=== PATIENT | female | born 1955 | race African-American/Black ===

== ENCOUNTER 2017-06-14 06:07 | Emergency (ER) | payer BC ==
[~2017-06-14] VITALS: Ht 165.1 cm; Wt 98.0 kg
[2017-06-14] MEDS ORDERED: SODIUM CHLORIDE 0.9% 1,000 ML IV ONE (06:49)
[2017-06-14] MEDS ORDERED: ONDANSETRON HCL 4MG/2ML VIAL IV STA (06:49)
[2017-06-14] MEDS ORDERED: KETOROLAC 30MG/ML VIAL IV STA (06:49)
[2017-06-14 07:04] LABS: BASOPHILS % 0.7 % (0.0-2.0); LYMPHOCYTES % 21.9 % (20.0-50.0); MEAN CORPUSCULAR HEMOGLOBIN 29.6 pg (28.0-32.0); MEAN CORPUSCULAR VOLUME 88.4 fL (81.0-99.0); MONOCYTES % 6.7 % (2.0-8.0); NEUTROPHILS % 69.7 % (40.0-76.0); RED BLOOD CELL COUNT 4.07 mill/uL (4.2-5.4)
[2017-06-14 07:14] LABS: PROTHROMBIN TIME 10.7 sec
[2017-06-14 07:16] LABS: CLARITY URINE CLOUDY (CLEAR); COLOR URINE DARK YELLOW (YELLOW); GLUCOSE URINE NEGATIVE (NEGATIVE); KETONES URINE NEGATIVE (NEGATIVE); LEUKOCYTE ESTERASE URINE NEGATIVE (NEGATIVE); NITRITE URINE NEGATIVE (NEGATIVE); OCCULT BLOOD URINE NEGATIVE (NEGATIVE); PH URINE 5.5 (4.5-8.0); PROTEIN URINE TRACE (NEGATIVE); SPECIFIC GRAVITY URINE 1.032 (1.005-1.030)
[2017-06-14 07:18] LABS: CARBON DIOXIDE 30 mEq/L (21-32); CHLORIDE 108 mEq/L (98-107)
[2017-06-14 09:03] LABS: MEAN PLATELET VOLUME 8.4 fl (7.4-10.4); PLATELET 191 x1000/uL (130-400); PLATELET ESTIMATE NORMAL
[2017-06-14 10:56] VITALS: BP 133/79
[2017-06-14] MEDS ORDERED: IOHEXOL-300 100 ML BOTTLE ONE (14:25)
[2017-06-14] MEDS ORDERED: SODIUM CHLORIDE 0.9% 10ML VIAL ONE (14:25)
== END 2017-06-14 10:59 | disposition home or self-care (01) ==
LOC: ER 06:07
DX: R10.32 Left lower quadrant pain (principal); F32.9 Major depressive disorder, single episode, unspecified; I95.9 Hypotension, unspecified; Z90.710 Acquired absence of both cervix and uterus
CPT/HCPCS: 36415; 74177; 80053; 81001; 83690; 85025; 85610; 96361; 96374; 96375; 99285; A4216; J1885; J2405; J7042; Q9967; Z7610; J7030; A4315

== ENCOUNTER 2018-08-20 11:00 | Inpatient (IN) | payer BC ==
[~2018-08-20] VITALS: Ht 167.6 cm; Wt 111.6 kg
[2018-08-20] MEDS ORDERED: ONDANSETRON HCL 4MG/2ML INJ IV STA (11:32)
[2018-08-20] MEDS ORDERED: NITROGLYCERIN 0.4MG TABLET SL SL PRN (11:45)
[2018-08-20] MEDS ORDERED: ASPIRIN 81MG TABLET PO ONE (11:45)
[2018-08-20] MEDS ORDERED: FAMOTIDINE 20MG/2ML VIAL IV ONE (12:00)
[2018-08-20 12:07] LABS: CHLORIDE 106 mEq/L (98-107)
[2018-08-20 12:15] LABS: D-DIMER 0.66 mg/L FEU (<0.50); INR 1.1; PARTIAL THROMBOPLASTIN TIME 26.1 sec (23.4-31.0); PROTHROMBIN TIME 10.7 sec (9.1-11.1)
[2018-08-20 12:23] LABS: BASOPHILS % 0.5 % (0.0-2.0); EOSINOPHILS % 0.2 % (0.0-5.0); HEMATOCRIT. 39.5 % (36.0-48.0); HEMOGLOBIN. 13.4 g/dL (12.0-16.0); LYMPHOCYTES % 12.6 % (20.0-50.0); MEAN CORPUSCULAR VOLUME 88.3 fL (81.0-99.0); MEAN PLATELET VOLUME 8.9 fl (7.4-10.4); NEUTROPHILS % 80.7 % (40.0-76.0); PLATELET 195 x1000/uL (130-400); RED BLOOD CELL COUNT 4.47 mill/uL (4.2-5.4); RED CELL DISTRIBUTION WIDTH 13.7 % (11.6-14.6)
[2018-08-20] MEDS ORDERED: ENOXAPARIN 120MG/0.8ML SYR SUBCUT ONE (12:45)
[2018-08-20] MEDS ORDERED: IOHEXOL-300 100 ML BOTTLE ONE (14:34)
[2018-08-20] MEDS ORDERED: CLONIDINE 0.1MG TABLET PO PRN ×2 (14:45→19:00)
[2018-08-20] MEDS ORDERED: MAGNESIUM/ALUMINUM HYDROXIDE/SIMETHICONE 30ML UDC PO PRN (14:45)
[2018-08-20] MEDS ORDERED: MORPHINE SULFATE 4 MG/ML CPJ (NOT FOR IM USE) IV PRN (14:45)
[2018-08-20] MEDS ORDERED: DOCUSATE SODIUM 100MG CAPSULE PO PRN (14:45)
[2018-08-20] MEDS ORDERED: IPRATROPIUM/ALBUTEROL 0.5-3(2.5)MG/3ML NEB INH PRN (14:45)
[2018-08-20] MEDS ORDERED: ONDANSETRON HCL 4MG/2ML INJ IV PRN (14:45)
[2018-08-20] MEDS ORDERED: LORAZEPAM 2MG/ML CPJ IV PRN (14:45)
[2018-08-20] MEDS ORDERED: HYDROCODONE/ACETAMINOPHEN 5/325MG TABLET PO PRN (14:45)
[2018-08-20] MEDS ORDERED: ACETAMINOPHEN 325MG TABLET PO PRN (14:45)
[2018-08-20] MEDS ORDERED: DIPHENHYDRAMINE 50MG/ML VIAL IV PRN (14:45)
[2018-08-20] MEDS ORDERED: GUAIFENESIN 200MG/10ML SUGAR FREE UDC PO PRN (14:45)
[2018-08-20] MEDS ORDERED: NA PHOS,M-B/NA PHOS,DI-BA ENEMA 118ML PR PRN (14:45)
[2018-08-20 16:52] LABS: CHLORIDE 104 mEq/L (98-107)
[2018-08-20 18:30] VITALS: BP 117/58
[2018-08-20] MEDS ORDERED: ALPR0.5T MT (18:57)
[2018-08-20] MEDS ORDERED: ASPIRIN 325MG EC TABLET PO NR (19:00)
[2018-08-20] MEDS ORDERED: ENOXAPARIN 100MG/ML SYR SUBCUT ONE (19:00)
[2018-08-20] MEDS ORDERED: LOSARTAN POTASSIUM 25 MG TABLET PO NR (19:00)
[2018-08-20] MEDS ORDERED: ASPIRIN 81MG TABLET PO NR (19:30)
[2018-08-20 20:00] VITALS: BP 138/74
[2018-08-20 20:01] VITALS: BP 138/74
[2018-08-20] MEDS: SODIUM CHLORIDE 0.45% 1,000 ML IV SCH (21:09)
[2018-08-20] MEDS: ENOXAPARIN 30MG/0.3ML SYR SUBCUT SCH (21:10)
[2018-08-20 22:00] VITALS: BP 111/68
[2018-08-20] MEDS: NITROGLYCERIN OINT 1GM/INCH UDPKT TD SCH (22:34)
[2018-08-21] VITALS (12 sets, daily range): BP systolic 91–141; BP diastolic 50–99
[2018-08-21] MEDS: NITROGLYCERIN OINT 1GM/INCH UDPKT TD SCH (06:00)
[2018-08-21 06:35] LABS: BASOPHILS % 0.4 % (0.0-2.0); EOSINOPHILS % 0.1 % (0.0-5.0); HEMATOCRIT. 35.7 % (36.0-48.0); MEAN CORPUSCULAR HEMOGLOBIN 30.1 pg (28.0-32.0); MEAN PLATELET VOLUME 9.4 fl (7.4-10.4); MONOCYTES % 8.4 % (2.0-8.0); NEUTROPHILS % 78.1 % (40.0-76.0); PLATELET 165 x1000/uL (130-400); RED CELL DISTRIBUTION WIDTH 13.6 % (11.6-14.6)
[2018-08-21 06:43] LABS: CHLORIDE 106 mEq/L (98-107)
[2018-08-21 06:57] LABS: CREATINE KINASE 424 IU/L (26-192); CREATINE KINASE MB FRACTION 16.6 ng/mL (0.5-3.6); LDL CHOLESTEROL 207 mg/dL (5-100)
[2018-08-21 06:58] LABS: HDL CHOLESTEROL 44 mg/dL (40-59); T4 FREE 0.98 ng/dL (0.76-1.46)
[2018-08-21] MEDS: SODIUM CHLORIDE 0.45% 1,000 ML IV SCH ×2 (07:44→21:30)
[2018-08-21] MEDS: ENOXAPARIN 30MG/0.3ML SYR SUBCUT SCH (09:00)
[2018-08-21] MEDS ORDERED: ASPIRIN 81MG EC TABLET PO SCH (09:00)
[2018-08-21] MEDS: ASPIRIN 325MG EC TABLET PO SCH (11:38)
[2018-08-21] MEDS ORDERED: NICARDIPINE 100MCG/ML 10ML VIAL (CATH LAB) IV ONE (13:20)
[2018-08-21] MEDS ORDERED: NITROGLYCERIN 50MCG/ML 10ML VIAL (CATH LAB) IV ONE (13:20)
[2018-08-21] MEDS ORDERED: LIDOCAINE HCL 1% 10 MG/ML 10ML VIAL ONE (13:55)
[2018-08-21] MEDS ORDERED: MIDAZOLAM HCL 2 MG/2 ML VIAL ONE (13:55)
[2018-08-21] MEDS ORDERED: IOHEXOL-300 100 ML BOTTLE ONE ×3 (13:56→14:35)
[2018-08-21] MEDS ORDERED: FENTANYL CITRATE/PF 50MCG/ML 2ML VIAL ONE (13:56)
[2018-08-21] MEDS ORDERED: ACETAMINOPHEN 325MG TABLET PO PRN (14:45)
[2018-08-21] MEDS ORDERED: ATROPINE SULFATE 1MG/10ML SYR IV PRN (14:45)
[2018-08-21 14:54] LABS: *AMPHETAMINES SCREEN URINE NEGATIVE (NEGATIVE); *BARBITURATES SCREEN URINE NEGATIVE (NEGATIVE); *BENZODIAZEPINES SCREEN URINE NEGATIVE (NEGATIVE); *COCAINE SCREEN URINE NEGATIVE (NEGATIVE); METHADONE URINE SCREEN NEGATIVE (NEGATIVE); OPIATES URINE SCREEN NEGATIVE (NEGATIVE)
[2018-08-21 14:55] LABS: CANNABINOID URINE SCREEN NEGATIVE (NEGATIVE); PHENCYCLIDINE URINE SCREEN NEGATIVE (NEGATIVE)
[2018-08-21] MEDS ORDERED: CLOPIDOGREL 75MG TABLET ONE (15:07)
[2018-08-21] MEDS ORDERED: HEPARIN SODIUM 1,000 UNIT/1ML VIAL IV ONE (15:15)
[2018-08-21] MEDS ORDERED: ATORVASTATIN CALCIUM 20MG TABLET PO SCH (21:00)
[2018-08-21] MEDS ORDERED: ATORVASTATIN CALCIUM 40MG TABLET PO SCH (21:00)
[2018-08-22] VITALS (9 sets, daily range): BP systolic 100–131; BP diastolic 59–96
[2018-08-22 06:44] LABS: BASOPHILS % 0.3 % (0.0-2.0); EOSINOPHILS % 0.3 % (0.0-5.0); HEMATOCRIT. 35.2 % (36.0-48.0); HEMOGLOBIN. 12.1 g/dL (12.0-16.0); LYMPHOCYTES % 16.2 % (20.0-50.0); MEAN CORPUSCULAR HEMOGLOBIN 30.4 pg (28.0-32.0); MEAN CORPUSCULAR VOLUME 88.1 fL (81.0-99.0); MEAN PLATELET VOLUME 9.4 fl (7.4-10.4); MONOCYTES % 7.5 % (2.0-8.0); NEUTROPHILS % 75.7 % (40.0-76.0); PLATELET 155 x1000/uL (130-400); RED CELL DISTRIBUTION WIDTH 13.7 % (11.6-14.6)
[2018-08-22 07:13] LABS: CHLORIDE 104 mEq/L (98-107)
[2018-08-22 07:23] LABS: CREATINE KINASE 221 IU/L (26-192)
[2018-08-22] MEDS: ASPIRIN 325MG EC TABLET PO SCH (07:55)
[2018-08-22] MEDS ORDERED: CLOPIDOGREL 75MG TABLET PO SCH (09:00)
[2018-08-22] MEDS: SODIUM CHLORIDE 0.45% 1,000 ML IV SCH (10:00)
== END 2018-08-22 15:18 | disposition home or self-care (01) | DRG 247 ==
LOC: ER 11:00 → 8WST 14:33 → ENRESERV 15:41 → 3WST 18:15
PROVIDERS: ADMIT Internal Medicine; ATTEND Internal Medicine
PROC: 4A023N7 Measurement of Cardiac Sampling and Pressure, Left Heart, Percutaneous Approach (ICD-10-PCS; principal; 2018-08-21)
PROC: 027034Z Dilation of Coronary Artery, One Artery with Drug-eluting Intraluminal Device, Percutaneous Approach (ICD-10-PCS; 2018-08-21)
PROC: B2111ZZ Fluoroscopy of Multiple Coronary Arteries using Low Osmolar Contrast (ICD-10-PCS; 2018-08-21)
DX: I21.4 Non-ST elevation (NSTEMI) myocardial infarction (principal); K57.90 Diverticulosis of intestine, part unspecified, without perforation or abscess without bleeding; E66.9 Obesity, unspecified; E78.00 Pure hypercholesterolemia, unspecified; E86.0 Dehydration; F32.9 Major depressive disorder, single episode, unspecified; F41.9 Anxiety disorder, unspecified; I10 Essential (primary) hypertension; Z87.891 Personal history of nicotine dependence; Z90.710 Acquired absence of both cervix and uterus; Z68.39 Body mass index [BMI] 39.0-39.9, adult
CPT/HCPCS: 36415; 71045; 71275; 80048; 80053; 80061; 80305; 82550; 82553; 83735; 83880; 84439; 84443; 84484; 85025; 85347; 85379; 85610; 85730; 86850; 86900; 92928; 93005; 93306; 93454; 93970; 96374; 96375; 99285; C1760; C1769; C1874; C1887; C1893; J1644; J1650; J2250; J2405; J3010; J3490; Q9967

== ENCOUNTER 2018-12-30 11:21 | Emergency (ER) | payer BC ==
[~2018-12-30] VITALS: Ht 165.1 cm; Wt 102.0 kg
[~2018-12-30 11:21] MED LIST: ALPR0.5T MT
[2018-12-30 11:51] VITALS: BP 102/56
== END 2018-12-30 15:30 | disposition left against medical advice (07) ==
LOC: ER 11:21
DX: R21 Rash and other nonspecific skin eruption (principal); E78.00 Pure hypercholesterolemia, unspecified; F41.9 Anxiety disorder, unspecified; Z53.21 Procedure and treatment not carried out due to patient leaving prior to being seen by health care provider

== ENCOUNTER 2019-01-03 09:51 | Emergency (ER) | payer BC ==
[~2019-01-03] VITALS: Ht 165.1 cm; Wt 101.0 kg
[2019-01-03] MEDS ORDERED: FAMOTIDINE 20MG TABLET PO ONE (14:30)
[2019-01-03 14:59] VITALS: BP 121/75
== END 2019-01-03 14:55 | disposition home or self-care (01) ==
LOC: ER 09:51
DX: L25.8 Unspecified contact dermatitis due to other agents (principal); F41.9 Anxiety disorder, unspecified; F32.9 Major depressive disorder, single episode, unspecified; E78.00 Pure hypercholesterolemia, unspecified; Z90.710 Acquired absence of both cervix and uterus
CPT/HCPCS: 99282

== ENCOUNTER 2019-07-12 08:31 | Emergency (ER) | payer BC ==
[~2019-07-12] VITALS: Ht 165.1 cm; Wt 105.0 kg
[2019-07-12] MEDS ORDERED: ACETAMINOPHEN WITH CODEINE 300/30MG TABLET PO STA (09:01)
[2019-07-12] MEDS ORDERED: NITROGLYCERIN 0.4MG TABLET SL SL PRN (09:15)
[2019-07-12 09:38] LABS: BASOPHILS % 0.4 % (0.0-2.0); EOSINOPHILS % 0.4 % (0.0-5.0); HEMATOCRIT. 37.8 % (36.0-48.0); HEMOGLOBIN. 12.8 g/dL (12.0-16.0); LYMPHOCYTES % 19.9 % (20.0-50.0); MEAN CORPUSCULAR HEMOGLOBIN 30.4 pg (28.0-32.0); MEAN CORPUSCULAR VOLUME 89.8 fL (81.0-99.0); MEAN PLATELET VOLUME 8.4 fl (7.4-10.4); MONOCYTES % 5.1 % (2.0-8.0); NEUTROPHILS % 74.2 % (40.0-76.0); PLATELET 206 x1000/uL (130-400); RED BLOOD CELL COUNT 4.21 mill/uL (4.2-5.4)
[2019-07-12 09:45] LABS: CHLORIDE 108 mEq/L (98-107)
[2019-07-12 10:45] VITALS: BP 118/70
== END 2019-07-12 10:50 | disposition home or self-care (01) ==
LOC: ER 08:31
DX: R07.89 Other chest pain (principal); I25.2 Old myocardial infarction; Z95.5 Presence of coronary angioplasty implant and graft; Z87.19 Personal history of other diseases of the digestive system; Z90.710 Acquired absence of both cervix and uterus
CPT/HCPCS: 36415; 71045; 83880; 84484; 93005; 99284

== ENCOUNTER 2020-11-04 07:26 | Emergency (ER) | payer BC, OTHER ==
[~2020-11-04] VITALS: Ht 165.1 cm; Wt 102.0 kg
[2020-11-04] MEDS ORDERED: ONDANSETRON HCL 4MG/2ML INJ IV STA (07:49)
[2020-11-04] MEDS ORDERED: MORPHINE SULFATE 4 MG/ML CPJ (NOT FOR IM USE) IV STA (07:49)
[2020-11-04] MEDS ORDERED: SODIUM CHLORIDE 0.9% 1,000 ML IV ONE (08:00)
[2020-11-04 08:40] LABS: BASOPHILS % 0.7 % (0.0-2.0); EOSINOPHILS % 0.3 % (0.0-5.0); HEMATOCRIT. 41.5 % (36.0-48.0); HEMOGLOBIN. 14.2 g/dL (12.0-16.0); LYMPHOCYTES % 14.9 % (20.0-50.0); MEAN CORPUSCULAR HEMOGLOBIN 30.1 pg (28.0-32.0); MEAN CORPUSCULAR VOLUME 87.8 fL (81.0-99.0); MEAN PLATELET VOLUME 9.2 fl (7.4-10.4); MONOCYTES % 5.4 % (2.0-8.0); NEUTROPHILS % 78.7 % (40.0-76.0); PLATELET 202 x1000/uL (130-400); RED BLOOD CELL COUNT 4.72 mill/uL (4.2-5.4); RED CELL DISTRIBUTION WIDTH 13.6 % (11.6-14.6)
[2020-11-04 08:46] LABS: INR 1.1; PROTHROMBIN TIME 11.1 sec (9.6-11.0)
[2020-11-04 08:49] LABS: CHLORIDE 107 mEq/L (98-107)
[2020-11-04] MEDS ORDERED: POTASSIUM CHLORIDE 20MEQ TABLET SR PO ONE (10:00)
[2020-11-04] MEDS ORDERED: AMLODIPINE 5MG TABLET PO NR (10:15)
[2020-11-04 10:42] LABS: COLOR URINE YELLOW (YELLOW); KETONES URINE 1+ (NEGATIVE); LEUKOCYTE ESTERASE URINE NEGATIVE (NEGATIVE); NITRITE URINE NEGATIVE (NEGATIVE); OCCULT BLOOD URINE NEGATIVE (NEGATIVE); PH URINE 5.5 (4.5-8.0); PROTEIN URINE NEGATIVE (NEGATIVE); SPECIFIC GRAVITY URINE 1.004 (1.005-1.030); UROBILINOGEN URINE 0.2 E.U./dL (0.2-1.0)
[2020-11-04 10:43] LABS: CLARITY URINE SL HAZY (CLEAR)
[2020-11-04] MEDS ORDERED: ASPIRIN 325MG EC TABLET PO ONE (10:45)
[2020-11-04 14:00] VITALS: BP 156/87
[2020-11-04] MEDS ORDERED: ATORVASTATIN CALCIUM 10MG TABLET PO SCH (21:00)
[2020-11-05] MEDS ORDERED: ASPIRIN 81MG EC TABLET PO SCH (09:00)
[2020-11-05] MEDS ORDERED: AMLODIPINE 5MG TABLET PO SCH (09:00)
== END 2020-11-04 14:28 | disposition left against medical advice (07) ==
LOC: ER 07:42
DX: R10.32 Left lower quadrant pain (principal); R07.89 Other chest pain; I25.2 Old myocardial infarction; Z90.710 Acquired absence of both cervix and uterus
CPT/HCPCS: 36415; 71045; 74176; 80053; 81003; 83690; 84484; 85025; 85610; 87426; 93005; 96361; 96374; 96375; 99285; J2270; J2405; J7030

== ENCOUNTER 2023-06-09 09:54 | Emergency (ER) | payer MEDICARE, OTHER ==
[~2023-06-09] VITALS: Ht 162.6 cm; Wt 106.0 kg
[2023-06-09 09:59] VITALS: BP 151/91; RESP 20; O2SAT 98
[2023-06-09 10:00] VITALS: PULSE 88
[2023-06-09 10:29] LABS: BASOPHILS % 0.6 % (0.0-2.0); EOSINOPHILS % 0.8 % (0.0-5.0); HEMATOCRIT. 38.8 % (36.0-48.0); LYMPHOCYTES % 23.6 % (20.0-50.0); MEAN CORPUSCULAR HEMOGLOBIN 29.8 pg (28.0-32.0); MEAN PLATELET VOLUME 8.3 fl (7.4-10.4); MONOCYTES % 5.5 % (2.0-8.0); NEUTROPHILS % 69.5 % (40.0-76.0); PLATELET 221 x1000/uL (130-400); RED BLOOD CELL COUNT 4.36 mill/uL (4.2-5.4); RED CELL DISTRIBUTION WIDTH 14.2 % (11.6-14.6)
[2023-06-09 10:37] LABS: CHLORIDE 110 mEq/L (98-107)
[2023-06-09 12:29] LABS: CLARITY URINE CLOUDY (CLEAR); COLOR URINE YELLOW (YELLOW); KETONES URINE NEGATIVE (NEGATIVE); LEUKOCYTE ESTERASE URINE TRACE (NEGATIVE); NITRITE URINE NEGATIVE (NEGATIVE); OCCULT BLOOD URINE NEGATIVE (NEGATIVE); PROTEIN URINE NEGATIVE (NEGATIVE); SPECIFIC GRAVITY URINE 1.011 (1.005-1.030); UROBILINOGEN URINE 0.2 E.U./dL (0.2-1.0)
[2023-06-09 12:45] VITALS: TEMP 98
[2023-06-09] MEDS ORDERED: ONDANSETRON HCL 4MG/2ML INJ IV ONE (12:45)
[2023-06-09] MEDS ORDERED: SODIUM CHLORIDE 0.9% 500 ML IV ONE (12:45)
[2023-06-09] MEDS ORDERED: ACETAMINOPHEN 325MG TABLET PO ONE (12:45)
== END 2023-06-09 13:47 | disposition left against medical advice (07) ==
LOC: ER 09:54
DX: R10.12 Left upper quadrant pain (principal); I25.2 Old myocardial infarction; Z90.710 Acquired absence of both cervix and uterus
CPT/HCPCS: 99283; 80053; 81003; 83690; 85025; 36415; J7040; J2405

== ENCOUNTER 2025-05-03 08:06 | Emergency (ER) | payer MEDICARE ==
[~2025-05-03] VITALS: Ht 162.6 cm; Wt 104.0 kg
[2025-05-03 08:20] VITALS: O2SAT 95
[2025-05-03 09:16] LABS: BASOPHILS % 0.6 % (0.0-2.0); EOSINOPHILS % 0.3 % (0.0-5.0); HEMATOCRIT. 36.5 % (36.0-48.0); HEMOGLOBIN. 12.2 g/dL (12.0-16.0); LYMPHOCYTES % 16.6 % (20.0-50.0); MEAN CORPUSCULAR HEMOGLOBIN 29.4 pg (28.0-32.0); MEAN CORPUSCULAR HGB CONC 33.5 g/dL (31.0-37.0); MEAN CORPUSCULAR VOLUME 87.8 fL (81.0-99.0); MONOCYTES % 5.4 % (2.0-8.0); NEUTROPHILS % 77.1 % (40.0-76.0); PLATELET 222 x1000/uL (130-400); RED BLOOD CELL COUNT 4.16 mill/uL (4.2-5.4); RED CELL DISTRIBUTION WIDTH 14.2 % (11.6-14.6)
[2025-05-03 09:22] LABS: CHLORIDE 111 mEq/L (98-107); POTASSIUM 4.4 mEq/L (3.5-5.1); SODIUM 142 mEq/L (136-145)
[2025-05-03 09:23] LABS: CARBON DIOXIDE 29 mEq/L (21-32)
[2025-05-03 09:24] LABS: CALCIUM 8.8 mg/dL (8.7-10.4)
[2025-05-03 09:29] LABS: ETHANOL BLOOD < 10 mg/dL (<10); GLUCOSE 110 mg/dL (70-105); UREA NITROGEN BLOOD 11 mg/dL (9-23)
[2025-05-03 11:18] LABS: CLARITY URINE CLOUDY (CLEAR); COLOR URINE YELLOW (YELLOW); GLUCOSE URINE NEGATIVE (NEGATIVE); KETONES URINE TRACE (NEGATIVE); LEUKOCYTE ESTERASE URINE TRACE (NEGATIVE); NITRITE URINE NEGATIVE (NEGATIVE); OCCULT BLOOD URINE NEGATIVE (NEGATIVE); PH URINE 5.5 (4.5-8.0); PROTEIN URINE TRACE (NEGATIVE); SPECIFIC GRAVITY URINE 1.027 (1.005-1.030)
[2025-05-03 11:30] LABS: SQUAMOUS EPITHELIAL CELL URINE 2+ /lpf (RARE/1+)
[2025-05-03 11:31] LABS: BACTERIA URINE 3+
[2025-05-03 11:33] LABS: RBC URINE 0-2 /hpf (0-2)
[2025-05-03 11:56] LABS: *AMPHETAMINES SCREEN URINE NEGATIVE (NEGATIVE)
[2025-05-03 11:57] LABS: *BARBITURATES SCREEN URINE NEGATIVE (NEGATIVE); *BENZODIAZEPINES SCREEN URINE PRESUMPTIVE POSITIVE (NEGATIVE); *COCAINE SCREEN URINE NEGATIVE (NEGATIVE); CANNABINOID URINE SCREEN NEGATIVE (NEGATIVE); ECSTASY MDMA SCREEN URINE NEGATIVE (NEGATIVE); METHADONE URINE SCREEN NEGATIVE (NEGATIVE); OPIATES URINE SCREEN NEGATIVE (NEGATIVE); PHENCYCLIDINE URINE SCREEN NEGATIVE (NEGATIVE)
[2025-05-03 12:58] VITALS: BP 145/83; PULSE 61; RESP 18; TEMP 36.5; O2SAT 98
== END 2025-05-03 13:00 | disposition home or self-care (01) ==
LOC: ER 08:06
DX: K57.30 Diverticulosis of large intestine without perforation or abscess without bleeding (principal); E78.00 Pure hypercholesterolemia, unspecified; I10 Essential (primary) hypertension; Z90.710 Acquired absence of both cervix and uterus; Z79.899 Other long term (current) drug therapy
CPT/HCPCS: 36415; 74176; 80048; 80305; 80320; 81003; 81025; 85025; 99284; G0480